=== PATIENT | female | born 1990 | race Hispanic/Latino ===

== ENCOUNTER 2018-01-16 15:23 | Emergency (ER) | payer BC ==
[2018-01-16] MEDS ORDERED: Acetaminophen 500 MG TAB ONE (16:01)
[2018-01-16] MEDS ORDERED: Ibuprofen 800 MG TAB ONE (16:01)
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
== END 2018-01-16 16:44 | disposition home or self-care (01) ==
LOC: NAV ERS 15:23
DX: S00.33XA Contusion of nose, initial encounter (principal); W22.8XXA Striking against or struck by other objects, initial encounter
CPT/HCPCS: 70160